=== PATIENT | male | born 1955 | race Caucasian/White ===

== ENCOUNTER 2019-03-10 13:30 | Emergency (ER) | payer OTHER ==
[~2019-03-10] VITALS: Ht 177.8 cm; Wt 81.8 kg
[2019-03-10 13:57] VITALS: BP 140/86
--- NOTE | 2019-03-10 15:08 | NUR ---
ADMINISTERED SOAP SUDS ENEMA, PT HAD LARGE BM.
== END 2019-03-10 15:19 | disposition home or self-care (01) ==
LOC: EDBD 13:31 → ER 13:31
DX: K56.41 Fecal impaction (principal); E11.9 Type 2 diabetes mellitus without complications
CPT/HCPCS: 99284